=== PATIENT | female | born 1940 | race Caucasian/White ===

== ENCOUNTER 2020-12-19 11:26 | Inpatient (IN) | payer OTHER ==
[~2020-12-19] VITALS: Ht 198.1 cm; Wt 86.2 kg
--- NOTE | 2020-12-19 11:45 | NUR ---
[email or web address], medical screening exam in progress
[2020-12-19] MEDS ORDERED: ONDANSETRON 4 MG/2 ML VIAL IV ONE (12:00)
[2020-12-19] MEDS ORDERED: ONDANSETRON 4 MG/2 ML VIAL ONE (12:08)
[2020-12-19] MEDS ORDERED: DIGO125T PO (12:09)
[2020-12-19] MEDS ORDERED: METO-358 PO (12:09)
[2020-12-19] MEDS ORDERED: LOSA100T31 PO (12:09)
[2020-12-19] MEDS ORDERED: RIVA10TA PO (12:09)
[2020-12-19] MEDS ORDERED: MECL-225 PO (12:09)
[2020-12-19] MEDS ORDERED: PANT40TA2 PO (12:09)
[2020-12-19] MEDS ORDERED: ASPI81TA31 PO (12:09)
[2020-12-19] MEDS ORDERED: ATOR10TA PO (12:09)
[2020-12-19 12:11] LABS: HEMATOCRIT 40.3 % (31.2-41.9); MEAN CORPUSCULAR HEMOGLOBIN 28.7 uug (24.7-32.8); PLATELET COUNT (AUTO) 201 K/uL (179-408)
[2020-12-19 12:24] LABS: BILIRUBIN,DIRECT 0.2 mg/dL (0.0-0.2); BILIRUBIN,TOTAL 0.7 mg/dL (0.2-1.0); POTASSIUM 4.1 mmol/L (3.5-5.1); TOTAL PROTEIN, SERUM 7.8 g/dL (6.4-8.2)
--- NOTE | 2020-12-19 12:43 | NUR ---
Patient refused COVID test, Dr Arizmendi notified.
--- NOTE | 2020-12-19 12:57 | NUR ---
Dr Arizmendi okayed for patient to take her 1pm regular home medicine (lanoxin 25mcg daily at 1pm). Dr Arizmendi notified re: per Infectious disease staff [place], since this patient refused the COVID test for admission, this patient will be admitted in the isolation area of the telemetry floor. Dr Arizmendi is to inform this patient. Addendum: 12/19/20 at 1301 by SHIMON (lanoxin 125mcg , not 25mcg)
--- NOTE | 2020-12-19 13:29 | NUR ---
ER registration staff Cristian is working on patient's insurance approval for admission in this hospital.
[2020-12-19 14:00] VITALS: BP 146/76
--- NOTE | 2020-12-19 14:14 | NUR ---
Patient is still refusing COVID test for admission. Patient consents to being assigned in the isolation areas of 3rd floor.
--- NOTE | 2020-12-19 14:39 | NUR ---
TEXTED DR. MASSEY FOR MRI APPROVAL.
--- NOTE | 2020-12-19 14:42 | NUR ---
Patient is eating lunch with good appetite, for transfer to 3rd floor as soon as patient is done eating.
[2020-12-19] MEDS ORDERED: ACETAMINOPHEN 325 MG TABLET PO PRN ×2 (15:00→16:15)
[2020-12-19] MEDS ORDERED: ACETAMINOPHEN ES 500 MG TABLET ONE (15:01)
--- NOTE | 2020-12-19 15:30 | NUR ---
Received patient from ED. AOx4. On room air. No signs of acute distress. With right forearm #22 heplock. Vital signs WNL. Patient on campus monitor. Patient noted with generalized weakness when ambulating to bed. Patient denies pain/ discomfort at this time. Oriented patient to unit and room. Bed alarm on. Call light within reach. Will continue to monitor.
[2020-12-19] MEDS ORDERED: MECLIZINE HCL 12.5 MG TABLET PO PRN ×2 (16:15)
[2020-12-19] MEDS ORDERED: Z GUARD REMEDY PASTE 57 GM TUBE TOP PRN (16:15)
[2020-12-19] MEDS ORDERED: MAGNESIUM HYDROXIDE 30 ML LIQUID UDC PO PRN (16:15)
[2020-12-19 16:19] LABS: POTASSIUM 4.2 mmol/L (3.5-5.1)
[2020-12-19 16:32] LABS: BILIRUBIN,TOTAL 0.6 mg/dL (0.2-1.0); TOTAL PROTEIN, SERUM 7.8 g/dL (6.4-8.2)
[2020-12-19 16:33] LABS: THYROID STIMULATING HORMONE 2.224 mIU/mL (0.358-3.740)
[2020-12-19] MEDS ORDERED: RIVAROXABAN 10 MG TABLET PO SCH (18:00)
--- NOTE | 2020-12-19 18:20 | NUR ---
patient currently laying in bed in no acute distress. patient denies pain or discomfort at this time. currently on droplet precautions all precautions upheld by staff. v/s wnl at this time. side rails up x2 bilateral, call light within reach.
[2020-12-19 20:05] VITALS: BP 148/67
[2020-12-19] MEDS: ACETAMINOPHEN 325 MG TABLET PO PRN (20:47)
[2020-12-19] MEDS ORDERED: ZOLPIDEM 5 MG TABLET PO PRN (21:00)
[2020-12-19] MEDS ORDERED: ATORVASTATIN 10 MG TABLET PO SCH (21:00)
--- NOTE | 2020-12-19 21:27 | NUR ---
Awake alert and oriented x4 No acute distress noted. Admitted for cerebellar ataxia. VSS needs attended. On supervisor finishing patient sinus carly HR 40's No ectopy noted. All due meds given. Refused COVID test. Will monitor patient. Kept comfortable. Continent of bowel and bladder.
[2020-12-20] VITALS: BP 148/87
[2020-12-20 04:05] VITALS: BP 109/76
[2020-12-20 06:39] LABS: HEMATOCRIT 37.8 % (31.2-41.9); MEAN CORPUSCULAR HEMOGLOBIN 29.1 uug (24.7-32.8); MEAN CORPUSCULAR VOLUME 86.7 fL (75.5-95.3); PLATELET COUNT (AUTO) 177 K/uL (179-408)
--- NOTE | 2020-12-20 06:39 | NUR ---
Slept well most of the shift. Needs attended. VSS. Kept comfortable. Will monitor patient. No acute distress noted. OOB to the BR with assist. Voiding freely. No complained presented during shift.
[2020-12-20 06:59] LABS: POTASSIUM 4.5 mmol/L (3.5-5.1)
[2020-12-20 07:05] LABS: MAGNESIUM 1.7 mg/dL (1.8-2.4); PHOSPHOROUS 4.4 mg/dL (2.5-4.9)
[2020-12-20] MEDS ORDERED: LOSARTAN POTASSIUM 50 MG TABLET PO SCH (09:00)
[2020-12-20] MEDS ORDERED: METOPROLOL SUCCINATE XL 50 MG TAB.SR.24H PO SCH (09:00)
[2020-12-20] MEDS ORDERED: DIGOXIN 125 MCG TABLET PO SCH (09:00)
[2020-12-20] MEDS ORDERED: PANTOPRAZOLE SODIUM 40 MG TABLET.DR PO SCH (09:00)
[2020-12-20] MEDS ORDERED: ASPIRIN 81 MG TAB.CHEW PO SCH (09:00)
[2020-12-20] MEDS: ONDANSETRON 4 MG/2 ML VIAL IV PRN ×2 (09:02→14:40)
[2020-12-20] MEDS ORDERED: MAGNESIUM OXIDE 400 MG TABLET PO ONE (10:30)
[2020-12-20] MEDS: ACETAMINOPHEN 325 MG TABLET PO PRN (11:54)
[2020-12-20 12:00] VITALS: BP_SYST 107; BP_SYST 134; BP_DIAS 51; BP_DIAS 74
[2020-12-20] MEDS ORDERED: ONDA4TAB5 PO (14:23)
--- NOTE | 2020-12-20 15:06 | NUR ---
dc orders received noted and carried out,dc heplock per md orders.dc instruction and education given to the pt ,pt said she will follow up with her pcp in one week.pt left the facility via private car in stable condition
== END 2020-12-20 15:05 | disposition home or self-care (01) | DRG 149 ==
LOC: ER 11:26 → TELE3 14:47
PROVIDERS: ADMIT Nurse Practitioner Acute Care; ATTEND Nurse Practitioner Acute Care
DX: H81.10 Benign paroxysmal vertigo, unspecified ear (principal); N17.9 Acute kidney failure, unspecified; I48.91 Unspecified atrial fibrillation; Z79.01 Long term (current) use of anticoagulants; E78.5 Hyperlipidemia, unspecified; I10 Essential (primary) hypertension
CPT/HCPCS: 36415; 70030-TC; 70450; 70551; 71045; 83735; 84100; 84443; 85025; 85651; 85730; 86850; 86900; 86901; 93005; 97161; A4663; A9150; G0378; J2405